=== PATIENT | female | born 1975 | race Caucasian/White ===

== ENCOUNTER 2022-12-26 11:47 | Outpatient (AMB) | payer MEDICARE, MEDICAID, SELFPAY ==
--- NOTE | 2022-12-26 11:50 | A.OFFVIS_ITS ---
Intake Vital Signs 12/26/22 11:51 Height 5 ft 3 in Weight 182 lb BMI 32.2 BP 104/80 Blood Pressure Location Lt brachial Position Sitting Pulse 69 Pulse Source Pulse Oximeter Pulse Oximetry (%) 93 Oxygen Delivery Method Room Air Intake Visit Reasons: [id number] Intake Note: Pt presents in office as a NPV for GBS. 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 Allergies pregabalin [From Lyrica] Allergy (Unknown, Verified 12/26/22 11:58) Rash Seasonal Allergies Allergy (Unknown, Verified 12/26/22 11:58) Unknown Medication List - Last Reconciled 12/26/22 by Earnestine Nguyen MD carvedilol 3.125 mg PO BID cyanocobalamin (vitamin B-12) 1,000 mcg PO DAILY duloxetine 30 mg PO BID ferrous sulfate 325 mg PO gabapentin 600 mg PO TID levothyroxine 175 mcg PO DAILY magnesium oxide 400 mg PO BID pantoprazole 40 mg PO QAM ropinirole 0.125 - 0.25 mg PO QPM HPI HPI Comments History of Present Illness Details 47y/o female with h/o Guillian Gentry syn drome in 2018 comes for further evaluation and management. She also has h/o restless legs syndrome, anemia, GOODMAN, Graves, hypothyroidism . SHe was seeing Dr. Kohli until he moved out of the area in 2021. During hospitalizations he was treated with IVIG and she recovered partially- she still has some weakness in the legs and numbness in her feet and hands Her EMG in 2021 showed a new sensory component -chronic diffuse sensory and motor neuropathy . No demyelinating features. Her RLS was also diagnosed in 2019 - she is on ropinirole and is helping. she has loud snoring, gasping arousals and hypersomnia. [facility] Medical History (Updated 12/26/22 @ 12:21 by Earnestine Nguyen MD) Snoring Restless leg syndrome, controlled Neuropathy Hypothyroidism Cirrhosis Anxiety GOODMAN (nonalcoholic steatohepatitis) GBS (Guillain Gentry syndrome) Esophageal varices determined by endoscopy Family History Father Hypertension Mother Uterine cancer Social History Alcohol intake: current Alcohol intake frequency: holidays/special occasions only Patient Tobacco Use Status: Never used Tobacco Review of Systems Const Reports daytime sleepiness, Reports difficulty sleeping and Reports snoring ENT Reports dysphagia Card Reports rapid heart rate Resp Reports snoring GI Reports dysphagia Musc Reports abnormal gait, Reports arthralgias, Reports muscle cramps and Reports tingling Neuro Reports abnormal gait, Reports Sensory deficit (Neuro), Reports tingling and Reports paresthesias Physical Exam Vital Signs: Last Vital Signs Pulse 69 12/26/22 11:51 BP 104/80 12/26/22 11:51 Pulse Ox 93 12/26/22 11:51 Oxygen Delivery Method Room Air 12/26/22 11:51 BMI result Body Mass Index 32.2 Const Orientation/consciousness: patient oriented x3 Neck Neck: Yes no meningeal signs Neuro Other: weakness of distal UE 4+/5 Distal LE- 4-/5 Mallampatti grade 4 General: patient oriented x3, moves all extremities and no meningeal signs Cranial nerves: Yes Bilaterally intact EOM present, Yes Nystagmus not present, Yes Normal facial strength present, Yes Midline tongue present, Yes Symmetric palate elevation present and Yes Ability to bilaterally elevate shoulders present Cognition (Neuro): normal cognition Gait exam (Neuro): Antalgic gait present Sensory Exam: Sensory deficit (Neuro) Deep tendon reflexes (DTR's): Right triceps reflex intensity grade: 1+, Left triceps reflex intensity grade: 1+, Rt Biceps (C5, C6): 1+, Left biceps reflex intensity grade: 1+, Right brachioradialis reflex intensity grade: 0, Left brachioradialis reflex intensity grade: 0, Right patellar reflex intensity grade: 0, Left patellar reflex intensity grade: 0, Right ankle reflex intensity grade: 0 and Left ankle reflex intensity grade: 0 Coordination: [id number] test normal Psych Appearance: grossly normal Assessment & Plan Assessment & Plan (1) Neuropathy: Code(s): G62.9 - Polyneuropathy, unspecified (2) Restless leg syndrome, controlled: Code(s): G25.81 - Restless legs syndrome (3) Snoring: Code(s): R06.83 - Snoring Plan Continue ropiniorle 0.25 mg 1-2 tabs qhs gabapentin 600mg tid Repeat EMG NCS Sleep study to r/o sleep apnea Alpha lipoic acid 600mgqd Orders: Orders PT Evaluation and Treatment Today G61.0 - Guillain-Gentry syndrome RT home sleep study Today G47.10 - Hypersomnia, unspecified, R06.83 - Snoring NE electromyogram (EMG) Today G61.0 - Guillain-Gentry syndrome, G62.9 - Polyneuropathy, unspecified Medications: New alpha lipoic acid 600 mg PO DAILY 30 caps 6RF NS Coding Level of Care Code New Pt Level 4 (37648) Diagnoses Neuropathy G62.9 Restless leg syndrome, controlled G25.81 Snoring R06.83
[2022-12-26 11:51] VITALS: BP 104/80; PULSE 69; O2SAT 93; BMI 32.2
== END 2022-12-26 12:27 | disposition home or self-care (01) ==
PROVIDERS: Visit Provider Psychiatry & Neurology Neurology
DX: G62.9 Polyneuropathy, unspecified (principal); G25.81 Restless legs syndrome; R06.83 Snoring
CPT/HCPCS: 99204

== ENCOUNTER → 2022-12-26 11:47 | Outpatient (BNVA) | payer MEDICARE, MEDICAID, SELFPAY | PROVIDERS: Visit Provider Psychiatry & Neurology Neurology | DX: G62.9 Polyneuropathy, unspecified (principal); G25.81 Restless legs syndrome; R06.83 Snoring | CPT/HCPCS: 99202 ==

== ENCOUNTER 2023-01-29 13:55 | Outpatient (REF) | payer OTHER, MEDICARE, MEDICAID, SELFPAY ==
--- NOTE | 2023-01-29 14:01 | EMG_ITS ---
Chief complaint: History of GBS in 2019. Continues to have residual weakness both upper lower extremities, more proximal muscles. Continues to have numbness especially in fingers and feet/toes. Last EMG available for my review was by Dr. Kohli on 06/01/2021. That study showed absent SNAPS but normal CMAPS, and MUAPs with signs of chronic reinnervation and reduced recruitment. Reason for referral: Evaluate for neuropathy Referred by: Dr. Nguyen Procedure done: Bilateral upper extremities, bilateral lower extremity NCS/EMG, focus on left side Precautions and/or limitations: None The limb temperature was monitored continuously and remained between 32-36 degrees C during the performance of the NCS. Nerve Conduction Studies Anti Sensory Summary Table ?Stim Site NR Onset (ms) Norm Onset (ms) Peak (ms) Norm Peak (ms) O-P Amp (?V) Norm O-P Amp Site1 Site2 Delta-0 (ms) Dist (cm) Francisco (m/s) Norm Francisco (m/s) Left Median Anti Sensory (2nd Digit) Wrist ? 5.4 6.5 <3.6 7.2 >10 Wrist 2nd Digit 5.4 14.0 26 Right Median Anti Sensory (2nd Digit) Wrist ? 5.8 6.6 <3.6 6.0 >10 Wrist 2nd Digit 5.8 14.0 24 Left Radial Anti Sensory (Thumb) Forearm ? 2.8 3.4 <3.1 9.5 Forearm Thumb 2.8 0.0 Right Radial Anti Sensory (Thumb) Forearm ? 2.2 2.9 <3.1 7.7 Forearm Thumb 2.2 0.0 Left Sural Anti Sensory (Lat Mall) Calf NR <4.0 >5.0 Calf Lat Mall 14.0 Right Sural Anti Sensory (Lat Mall) Calf ? 5.8 6.3 <4.0 13.9 >5.0 Calf Lat Mall 5.8 14.0 24 Left Ulnar Anti Sensory (5th Digit) Wrist ? 2.7 3.3 <3.7 1.9 >15.0 Wrist 5th Digit 2.7 14.0 52 Right Ulnar Anti Sensory (5th Digit) Wrist ? 2.8 3.8 <3.7 18.8 >15.0 Wrist 5th Digit 2.8 14.0 50 Motor Summary Table ?Stim Site NR Onset (ms) Norm Onset (ms) O-P Amp (mV) Norm O-P Amp iAmp (mV) Amp (1st) (%) Site1 Site2 Delta-0 (ms) Dist (cm) Francisco (m/s) Norm Francisco (m/s) Left Median Motor (Abd Poll Brev) Wrist ? 3.4 <3.9 10.1 >4.5 12.0 100.0 Elbow Wrist 3.1 18.0 58 >45 Elbow ? 6.5 9.9 11.6 98.0 Left Peroneal Motor (Ext Dig Brev) Ankle ? 3.2 <4.0 5.1 >2.5 6.0 100.0 Ankle Ext Dig Brev 3.2 0.0 B Fib ? 9.7 4.8 5.4 94.1 B Fib Ankle 6.5 28.5 44 >40 Poplt ? 10.3 4.8 5.4 94.1 Poplt B Fib 0.6 4.5 75 >40 Left Tibial Motor (Abd Conde Brev) Ankle ? 3.4 <5 10.5 >2.5 14.4 100.0 Ankle Abd Conde Brev 3.4 0.0 Knee ? 10.5 11.1 14.9 105.7 Knee Ankle 7.1 36.0 51 >40 Left Ulnar Motor (Abd Dig Minimi) Wrist ? 2.7 <3.0 7.9 >5 9.9 100.0 B Elbow Wrist 2.8 16.0 57 >45 B Elbow ? 5.5 7.5 9.8 94.9 A Elbow B Elbow 1.4 10.0 71 >45 A Elbow ? 6.9 6.8 8.8 86.1 H Reflex Studies ?NR H-Lat (ms) L-R H-Lat (ms) L-R Lat Norm Left Tibial (Gastroc) ? 35.05 2.39 <2.0 Right Tibial (Gastroc) ? 32.66 2.39 <2.0 EMG ?Side Muscle Nerve Root Ins Act Fibs Psw Amp Dur Poly Recrt Int Pat Comment Left 1stDorInt Ulnar C8-T1 Nml Nml Nml Nml Nml 0 Nml Complete Left FlexCarRad Median C6-7 Nml Nml Nml Nml Nml 0 Nml Complete Left Biceps Musculocut C5-6 Nml Nml Nml Nml Nml 0 Nml Complete Left Triceps Radial C6-7-8 Nml Nml Nml Nml Nml 1+ Nml Complete Left Deltoid Axillary C5-6 Nml Nml Nml Nml Nml 0 Nml Complete Left AbdHallucis MedPlantar S1-2 Nml Nml Nml Nml Nml 0 Nml Complete Left AntTibialis Dp Br Peron L4-5 Nml Nml Nml Incr Incr 0 Reduced Complete Left PostTibialis Tibial L5, S1 Nml Nml Nml Nml Nml 0 Nml Complete Left MedGastroc Tibial S1-2 Nml Nml Nml Nml Nml 0 Nml Complete Left VastusMed Femoral L2-4 Nml Nml Nml Incr Incr 0 Reduced Complete Paraspinal EMG ?Side Muscle Nerve Root Ins Act Fibs Psw Comment Left Cervical Upper Rami Nml Nml Nml Left Cervical Mid Rami Nml Nml Nml Left Cervical Lower Rami Nml Nml Nml Left Lumbar Upper Rami Nml Nml Nml Left Lumbar Mid Rami Nml Nml Nml Left Lumbar Lower Rami Nml Nml Nml FINDINGS: All CMAPS within normal. Bilateral median sensory nerve showed prolonged peak latency and small amplitude. Bilateral ulnar sensory nerve showed normal peak latency but small amplitude. Left radial sensory nerve showed normal peak latency but small amplitude. Right radial sensory nerve was within normal. Right sural nerve showed prolonged peak latency and small amplitude. Left sural nerve showed absent response. H reflexes were now present, within normal latency, no significant difference side to side. Concentric needle EMG was performed in selected muscles of the left upper and lower extremities, lumbar paraspinals, cervical paraspinals. Study revealed signs of electric abnormalities as shown in the table below. Left medial vastus and TA muscles showed increased duration and amplitude, reduced recruitment. Left triceps showed increased polyphasia. IMPRESSION: 1. This is an abnormal study. 2. There is electrodiagnostic evidence for chronic diffuse sensorimotor polyneuropathy, primarily axonal features. CLINICAL COMMENT: Today's study shows improvement as compared to study done in 2021. Thank you for your kind referral. Carmelita Valdez MD, SUNSHINE Board Certified, [place] [employer] and Rehabilitation (ABPMR) Board Certified, [place] Board of Electrodiagnostic Medicine (ABEM) CODIN [id number] x 2 [facility]
== END 2023-01-29 13:56 | disposition home or self-care (01) ==
LOC: HO.NEURO 13:55
PROVIDERS: PCP Internal Medicine; Visit Provider Psychiatry & Neurology Neurology
DX: G61.0 Guillain-Barre syndrome (principal); G62.9 Polyneuropathy, unspecified
CPT/HCPCS: 95886; 95913

== ENCOUNTER → 2023-01-29 14:01 | Outpatient (BNV) | payer OTHER, MEDICARE, MEDICAID, SELFPAY | PROVIDERS: PCP Internal Medicine; Visit Provider Physical Medicine & Rehabilitation | DX: G62.9 Polyneuropathy, unspecified (principal) | CPT/HCPCS: 95886; 95913 ==

== ENCOUNTER 2023-02-03 09:00 | Outpatient (RCR) | payer MEDICARE, OTHER, MEDICAID, SELFPAY ==
[2023-01-10 12:51] VITALS: BP 110/79; PULSE 72; O2SAT 96
--- NOTE | 2023-01-13 08:24 | MHC.PT.EP ---
[facility] [place] Office [place] [facility] [place] [facility] [address] ePtty Cuellar [address] [phone] F: [phone] F: [phone] F: [phone] F: [phone] Physical Therapy Plan of Care Date of Evaluation: 01/10/23 Date of Surgery: Diagnosis: PT eval and treat G610.0signed by Earnestine Gibbs date of script 12/30/22 Guillan [place] Syndrome Assessment: Pt is a RHD 47 y/o female, referred to PT from Dr. Earnestine Nguyen's office on 12/30/22 following time of new consultation (formerly was seeing Dr. Black from [facility]) who since retired. History of severe URI> diagnosis GBS 10/26/2018 which resulted in acute hospitalization stay in ICU>inpatient rehab [place]> [facility]>outapatient rehab [place] until 2019. Pt expressing initially at time of injury was left paralyzed unable to stand, walk, or control her movements from the neck down. Gradually patient gained core and LE strength was DC home unable to walk or stand from inpatient rehab. Pt has since gained ability to walk at outpatient level in spring 2019 prior to COVID closures. Pt states she never had respiratory compromise with acute hospitalization. Pt exhibits impaired static, dynamic balance, altered sensation in her bilateral UE and LE. Pt to undergo EMG on 01/29/22 and will compare to last completed EMG study. Pt has bilateral AFO's but has been noncompliant in use due to report of discomfort in her feet. She is no longer able to drive secondary to her weakness in her LE and has been on disability since. Pt has history of restless leg syndrome, expressing was recently started on new medication to aide in her LE sx. Pt expresses working with a mental health clinician on/off to aide in her anxiety/depression. Pt states she is interested in use of [employer] services as her will be starting a new job and will be helpful in providing her transportation to and from PT. Pt very motivated and was educated to bring her previous AFO/sneakers/and std cane with her to next session. Pt will benefit from continued evaluation and screening of LE DTRs (ran out of time at evaluation date). Pt exhibits weakness and deconditioning of trunk and proximal hip musculature. Pt currently reports has been attending gym setting but lacks stabiity/endurance. Pt also reports hx of fluctuating thyroid levels which is being watched by her PCP. Pt has a follow up with Dr. Nguyen's office in 3 months time. Pt to undego skilled PT services twice weekly to address listed impairments and establish a HEP. Pt reports attending the gym with limited endurance and concern for falls. Pt presented to the office not using any form of AD but expresses she does have a cane which she left in her car. Pt also has history of previous AFO fitting but expresses poor compliance with usage secondary to increased parathesias with her shoes resulting in discomfort and walking barefoot at home. Pt would benefit from reassessment for bilateral AFO and custom footwear assessment to best serve patient and her needs. Pt understanding of education post evaluation and will be bringing in her AFOS/current footwear with her next session. Frequency and Duration: The patient will be seen 2x/week Short Term Goals: 1. Increase strength of SLR to good on L>R LE. 2. Initiate self care program. 3. Refer to rn imaging to reassess footwear/current AFOs which pt has not used in several years. 4. Increase strength of glutes one strength grade. Combination Technician Goals: 1. Increase strength hip abductors to 5/5 bilaterally. 2. Increase strength knee extensors 5/5. 3. I HEP. 4. Good safety with functional transfers. 5. Least restrictive AD to negotiate 8 inch step with good safety/balance. Treatment Plan: Modalities to reduce pain, spasms and effusion. Manual therapy to restore motion and function. Therapeutic exercise to improve strength and flexibility. Neuromuscular re-education for posture and balance. Therapeutic activities to return to functional activities of daily living. Electronically signed by: Izabella Sen, PT, DPT Please sign and return to therapist. Thank you for your referral.
== END 2023-05-30 09:45 | disposition home or self-care (01) ==
LOC: HO.PTWFD 09:00
PROVIDERS: PCP Internal Medicine; Visit Provider Psychiatry & Neurology Neurology
DX: G61.0 Guillain-Barre syndrome (principal)
CPT/HCPCS: 97110; 97163; 97530